=== PATIENT | female | born 2000 | race African-American/Black ===

== ENCOUNTER 2022-03-07 22:57 | Emergency (ER) | payer OTHER ==
[2022-03-08 16:44] LABS: Chlam.trachomatis by PCR,Urine DETECTED (NotDetected)
== END 2022-03-08 00:06 | disposition left against medical advice (07) ==
LOC: CSHERS 22:57
DX: Z53.21 Procedure and treatment not carried out due to patient leaving prior to being seen by health care provider (principal)
CPT/HCPCS: 87491; 87591

== ENCOUNTER 2022-03-24 08:46 | Emergency (ER) | payer OTHER ==
[2022-03-24 09:25] LABS: Bilirubin Neg (Negative); Blood, Urine 150 (Negative); Clarity Slightly Cloudy (Clear); Glucose, Urine (Dipstick) Normal (Negative); Ketone, Urine Negative (Negative); Leukocyte 500 (Negative); Nitrite Negative (Negative); Protein, Urine (Dipstick) Negative (Neg-Trace); Specific Gravity, Urine 1.015 (1.002-1.036); Urobilinogen Normal mg/dL (Less than 2)
[2022-03-24 09:27] LABS: Pregnancy Test - Urine (BHCG) Negative (Negative); Pregu Control Background? CLEAR/WHITE (CLR/WHITE); Pregu Control Bar Appear? YES (CONTROL BAR); Specific Gravity 1.015 (1.002-1.036)
[2022-03-24 09:36] LABS: #Eosinphils 0.1 10x3/uL (0.0-0.5); #Monocytes 0.6 10x3/uL (0.0-1.1); %Basophils 0.3 % (0.0-2.0); %Eosinophils 0.8 % (0.0-6.0); %Lymphocytes 9.9 % (18.0-47.0); %Monocytes 4.3 % (0.0-10.0); %Neutrophils 84.4 % (40.0-75.0); Hemoglobin 11.7 g/dL (12.0-15.5); Mean Corpuscular HGB CONC 33.6 g/dL (32.0-36.0); Mean Corpuscular Hemoglobin 27.3 pg (27.0-33.0); Mean Corpuscular Volume 81.1 fl (81.6-98.3); Mean Platelet Volume 10.9 fl (7.4-10.4); Platelet Count 319 10x3/uL (150-450); RBC Distribution Width 15.2 % (11.5-14.5); Red Blood Cell (RBC) Count 4.29 10x6/uL (3.90-5.03); White Blood Cell (WBC) Count 14.2 10x3/uL (3.5-10.5)
[2022-03-24 09:37] LABS: ALT (SGPT) Less than 6 U/L (8-55); AST (SGOT) 15 U/L (5-34); Albumin 4.2 g/dL (3.5-5.0); Alkaline Phosphatase 47 U/L (40-110); Anion Gap 14 mmol/L (10-20); BUN (Urea Nitrogen) 12 mg/dL (7.0-18.7); Bilirubin, Total 0.7 mg/dL (0.2-1.2); Calc. Creatinine Clearance 0 mL/min (70-130); Calcium 9.9 mg/dL (7.8-10.44); Carbon Dioxide 25 mmol/L (22-29); Chloride 103 mmol/L (98-107); Estimated GFR 72; Globulin 4.3 g/dL (2.4-3.5); Glucose 99 mg/dL (70-105); Potassium 3.8 mmol/L (3.5-5.1); Protein, Total 8.5 g/dL (6.0-8.3); Sodium 138 mmol/L (136-145)
[2022-03-24 09:43] LABS: Bacteria/HPF 2+ HPF (None Seen); WBC/HPF 21-50 HPF (0-3)
[2022-03-24] MEDS ORDERED: Ondansetron ODT 4 MG TAB ONE (09:51)
[2022-03-24] MEDS ORDERED: Lidocaine 1% (PF) 30 ML VIAL ONE (09:51)
[2022-03-24] MEDS ORDERED: cefTRIAXone\\ROCEPHIN 250 MG VIAL ONE (09:52)
[2022-03-24] MEDS ORDERED: Ketorolac Tromethamine 30 MG/ML VIAL ONE (09:52)
== END 2022-03-24 10:05 | disposition home or self-care (01) ==
LOC: CSHERS 08:46
DX: N93.9 Abnormal uterine and vaginal bleeding, unspecified (principal); N73.9 Female pelvic inflammatory disease, unspecified
CPT/HCPCS: 80053; 81003; 81015; 81025; 85025; 96372; 99284; J0696; J1885; J2001; Q0162

== ENCOUNTER → 2024-02-09 | Emergency (ER) | payer OTHER, SELFPAY ==
[~2024-02-09] MED LIST: Acetaminophen 325 MG TAB ONE; Ondansetron ODT 4 MG TAB ONE
[2024-02-09 12:11] LABS: ALT (SGPT) Less than 7 U/L (8-55); AST (SGOT) 12 U/L (5-34); Albumin 3.9 g/dL (3.5-5.0); Alkaline Phosphatase 48 U/L (40-110); Anion Gap 12 mmol/L (10-20); BUN (Urea Nitrogen) 8 mg/dL (7.0-18.7); Bilirubin, Total 0.9 mg/dL (0.2-1.2); Calc. Creatinine Clearance 0 mL/min (70-130); Calcium 9.6 mg/dL (7.8-10.44); Carbon Dioxide 26 mmol/L (22-29); Chloride 106 mmol/L (98-107); Estimated GFR 73; Globulin 3.4 g/dL (2.4-3.5); Glucose 98 mg/dL (70-105); Potassium 3.4 mmol/L (3.5-5.1); Protein, Total 7.3 g/dL (6.0-8.3); Sodium 141 mmol/L (136-145)
[2024-02-09 12:13] LABS: #Basophils 0.03 10x3/uL (0.0-0.2); #Eosinphils 0.03 10x3/uL (0.0-0.5); #Monocytes 0.34 10x3/uL (0.0-1.1); #Neutrophils 3.47 10x3/uL (1.5-8.4); %Basophils 0.6 % (0.0-2.0); %Eosinophils 0.6 % (0.0-6.0); %Lymphocytes 28.1 % (18.0-47.0); %Monocytes 6.3 % (0.0-10.0); %Neutrophils 64.2 % (40.0-75.0); Hematocrit 34.4 % (34.9-44.5); Hemoglobin 11.4 g/dL (12.0-15.5); Mean Corpuscular HGB CONC 33.1 g/dL (32.0-36.0); Mean Corpuscular Hemoglobin 26.5 pg (27.0-33.0); Mean Platelet Volume 10.4 fl (7.4-10.4); Platelet Count 232 10x3/uL (150-450); RBC Distribution Width 15.1 % (11.5-14.5); White Blood Cell (WBC) Count 5.4 10x3/uL (3.5-10.5)
[2024-02-09 13:50] LABS: Bilirubin Neg (Negative); Blood, Urine 25 (Negative); Glucose, Urine (Dipstick) Normal (Negative); Ketone, Urine Negative (Negative); Leukocyte 100 (Negative); Nitrite Negative (Negative); Protein, Urine (Dipstick) 15 mg/dl (Neg-Trace); Specific Gravity, Urine 1.015 (1.005-1.030); Urobilinogen Normal mg/dL (Less than 2)
[2024-02-09 13:52] LABS: Pregnancy Test - Urine (BHCG) Negative (Negative); Pregu Control Background? CLEAR/WHITE (CLR/WHITE); Pregu Control Bar Appear? YES (CONTROL BAR); Specific Gravity 1.015 (1.002-1.036)
[2024-02-09 14:00] LABS: Clarity Hazy (Clear)
[2024-02-09 14:08] LABS: Bacteria/HPF 3+ HPF (None Seen); CAUTI Indications for Culture Acute Hematuria; Mucous/LPF 2+ LPF (<2+); RBC/HPF 0-3 HPF (0-3); Trichomonas/HPF Rare HPF (None Seen)
[2024-02-09 14:26] LABS: Urine Culture Reflex Yes Yes
[2024-02-10 18:58] LABS: Chlam.trachomatis by PCR,Urine Not Detected (NotDetected); GC N.gonorrhoeae PCR,UrineVOID Not Detected (NotDetected)
== END ==
LOC: CSHERS 11:04
DX: A59.01 Trichomonal vulvovaginitis (principal); N39.0 Urinary tract infection, site not specified; F17.290 Nicotine dependence, other tobacco product, uncomplicated
CPT/HCPCS: 36415; 76856; 80053; 81001; 81025; 85025; 86900; 86901; 87077; 87086; 87186; 87491; 87591; Q0162

== ENCOUNTER 2024-08-23 13:01 | Emergency (ER) | payer OTHER | END 2024-08-23 14:01 | disposition home or self-care (01) | LOC: CSHERS 13:01 | DX: Z00.00 Encounter for general adult medical examination without abnormal findings (principal); O36.8120 Decreased fetal movements, second trimester, not applicable or unspecified; F17.290 Nicotine dependence, other tobacco product, uncomplicated; Z3A.19 19 weeks gestation of pregnancy | CPT/HCPCS: 99283 ==

== ENCOUNTER 2024-09-18 21:18 | Day surgery (SDC) | payer OTHER ==
[2024-09-19 00:48] LABS: Bilirubin Neg (Negative); Blood, Urine Negative (Negative); Clarity Clear (Clear); Glucose, Urine (Dipstick) Normal (Negative); Ketone, Urine 15 mg/dL (Negative); Leukocyte Negative (Negative); Nitrite Negative (Negative); Protein, Urine (Dipstick) 15 mg/dl (Neg-Trace); Urobilinogen Normal mg/dL (Less than 2)
[2024-09-19 00:58] LABS: Bacteria/HPF 1+ HPF (None Seen); CAUTI Indications for Culture Pregnancy; RBC/HPF 0-3 HPF (0-3)
[2024-09-19 00:59] LABS: Urine Culture Reflex Yes Yes
== END 2024-09-18 23:10 | disposition home or self-care (01) ==
LOC: CSHERS 21:18 → CSHLD/OP 21:43
PROVIDERS: ATTEND Family Medicine
DX: O36.8120 Decreased fetal movements, second trimester, not applicable or unspecified (principal); O09.42 Supervision of pregnancy with grand multiparity, second trimester; Z3A.22 22 weeks gestation of pregnancy; Z79.899 Other long term (current) drug therapy
CPT/HCPCS: 81001; 87086; 93005

== ENCOUNTER 2024-09-28 19:23 | Day surgery (SDC) | payer OTHER ==
[2024-09-28] MEDS ORDERED: hydrALAZINE 20 MG/ML VIAL SLOW IVP PRN (19:40)
[2024-09-28 20:01] VITALS: BMI 21.4
[2024-09-28 21:10] LABS: Bilirubin Neg (Negative); Blood, Urine Negative (Negative); Clarity Clear (Clear); Glucose, Urine (Dipstick) Normal (Negative); Ketone, Urine Negative (Negative); Leukocyte 500 (Negative); Nitrite Negative (Negative); Protein, Urine (Dipstick) Negative (Neg-Trace); Urobilinogen Normal mg/dL (Less than 2)
[2024-09-28 21:36] LABS: CAUTI Indications for Culture Pregnancy; RBC/HPF 0-3 HPF (0-3)
[2024-09-28 21:37] LABS: Bacteria/HPF 1+ HPF (None Seen); Trichomonas/HPF 2+ HPF (None Seen)
[2024-09-28 21:38] LABS: Urine Culture Reflex Yes Yes
[2024-09-28] MEDS: Lactated Ringer's 1,000 ML IV SCH (22:30)
[2024-09-28] MEDS: cefTRIAXone\\ROCEPHIN 1 GM in Sodium Chloride 0.9% 100 ML IVPB SCH (22:35)
[2024-09-28] MEDS: metroNIDAZOLE 500 MG TAB PO SCH (22:35)
[2024-09-28] MEDS: Fluconazole 100 MG TAB PO SCH (23:19)
== END 2024-09-28 23:25 | disposition home or self-care (01) ==
LOC: CSHLD/OP 19:23
PROVIDERS: ATTEND Family Medicine
DX: O47.02 False labor before 37 completed weeks of gestation, second trimester (principal); O21.2 Late vomiting of pregnancy; O99.891 Other specified diseases and conditions complicating pregnancy; R19.7 Diarrhea, unspecified; O99.282 Endocrine, nutritional and metabolic diseases complicating pregnancy, second trimester; E86.0 Dehydration; O23.592 Infection of other part of genital tract in pregnancy, second trimester; B96.89 Other specified bacterial agents as the cause of diseases classified elsewhere; B37.31 Acute candidiasis of vulva and vagina; O23.42 Unspecified infection of urinary tract in pregnancy, second trimester; Z79.899 Other long term (current) drug therapy; Z3A.23 23 weeks gestation of pregnancy
CPT/HCPCS: 76817; 81001; 87086; 87480; 87510; 87660; 96360; 99285; J0696

== ENCOUNTER 2024-10-20 12:19 | Emergency (ER) | payer OTHER ==
[2024-10-20] MEDS ORDERED: Ondansetron PF 4 MG/2 ML Vial ONE (12:55)
[2024-10-20] MEDS ORDERED: Acetaminophen 500 MG TAB ONE (13:06)
[2024-10-20 13:43] LABS: #Basophils 0.03 10x3/uL (0.0-0.2); #Eosinophils 0.07 10x3/uL (0.0-0.5); #Monocytes 0.54 10x3/uL (0.0-1.1); #Neutrophils 5.82 10x3/uL (1.5-8.4); %Basophils 0.4 % (0.0-2.0); %Eosinophils 0.8 % (0.0-6.0); %Lymphocytes 21.8 % (18.0-47.0); %Monocytes 6.5 % (0.0-10.0); Hematocrit 27.7 % (34.9-44.5); Mean Corpuscular HGB CONC 32.5 g/dL (32.0-36.0); Mean Corpuscular Hemoglobin 26.1 pg (27.0-33.0); Mean Corpuscular Volume 80.3 fL (81.6-98.3); Mean Platelet Volume 10.9 fL (7.4-10.4); Platelet Count 228 10x3/uL (150-450); RBC Distribution Width 13.2 % (11.5-14.5); Red Blood Cell (RBC) Count 3.45 10x6/uL (3.90-5.03); White Blood Cell (WBC) Count 8.31 10x3/uL (3.5-10.5)
[2024-10-20 14:02] LABS: ALT (SGPT) 9 U/L (Less than 34); AST (SGOT) 15 U/L (11-34); Albumin 2.7 g/dL (3.1-4.5); Alkaline Phosphatase 91 U/L (40-110); Anion Gap 11 mmol/L (10-20); BUN (Urea Nitrogen) 7 mg/dL (7.0-18.7); Bilirubin, Total 0.3 mg/dL (0.3-1.2); Calc. Creatinine Clearance 0 mL/min (70-130); Calcium 8.3 mg/dL (7.8-10.44); Carbon Dioxide 20 mmol/L (22-29); Chloride 109 mmol/L (98-107); Estimated GFR 114; Globulin 3.9 g/dL (2.4-3.5); Glucose 85 mg/dL (70-105); Potassium 3.5 mmol/L (3.5-5.1); Protein, Total 6.6 g/dL (6.0-8.3); Sodium 136 mmol/L (136-145)
[2024-10-20 16:40] LABS: Actual Bicarbonate (HCO3v) 18.6 mEq/L (22-28); Analyzer IN Cardio CS ER; Base Excess -3.9 mEq/L (-2 - +2); Chloride (VBG) 106 mmol/L (98-106); Critical Notified Whom: Litty; Hematocrit-VBG 29 % (36.0-47.0); Hemoglobin (Hb) 9.8 g/dL (11.7-15.5); Potassium (VBG) 3.54 mmol/L (3.70-5.30); Puncture Site Other Site; RapidComm Collect By LAB; Sodium 135 mmol/L (133-146); pH (venous) 7.478 (7.32-7.43)
== END 2024-10-20 17:30 | disposition home or self-care (01) ==
LOC: CSHERS 12:19
DX: O99.891 Other specified diseases and conditions complicating pregnancy (principal); R51.9 Headache, unspecified; O21.9 Vomiting of pregnancy, unspecified; O99.332 Smoking (tobacco) complicating pregnancy, second trimester; F17.290 Nicotine dependence, other tobacco product, uncomplicated; Z3A.27 27 weeks gestation of pregnancy; Z77.098 Contact with and (suspected) exposure to other hazardous, chiefly nonmedicinal, chemicals
CPT/HCPCS: 36415; 80053; 82805; 85025; 96374; J2405

== ENCOUNTER 2024-10-28 00:43 | Inpatient (IN) | payer OTHER ==
[2024-10-28] MEDS: Lactated Ringer's 1,000 ML IV SCH (01:40)
[2024-10-28 01:59] VITALS: BMI 21.7
[2024-10-28 01:59] LABS: #Basophils Less than 0.03 10x3/uL (0.0-0.2); #Eosinophils 0.06 10x3/uL (0.0-0.5); #Monocytes 0.64 10x3/uL (0.0-1.1); %Basophils 0.2 % (0.0-2.0); %Eosinophils 0.7 % (0.0-6.0); %Lymphocytes 18.7 % (18.0-47.0); %Monocytes 7.3 % (0.0-10.0); %Neutrophils 72.8 % (40.0-75.0); Bilirubin Neg (Negative); Blood, Urine Negative (Negative); Clarity Clear (Clear); Glucose, Urine (Dipstick) Normal (Negative); Hematocrit 27.9 % (34.9-44.5); Hemoglobin 9.5 g/dL (12.0-15.5); Ketone, Urine Negative (Negative); Leukocyte Negative (Negative); Mean Corpuscular HGB CONC 34.1 g/dL (32.0-36.0); Mean Corpuscular Hemoglobin 26.9 pg (27.0-33.0); Mean Platelet Volume 10.8 fL (7.4-10.4); Nitrite Negative (Negative); Platelet Count 261 10x3/uL (150-450); Protein, Urine (Dipstick) Negative (Neg-Trace); RBC Distribution Width 13.5 % (11.5-14.5); Red Blood Cell (RBC) Count 3.53 10x6/uL (3.90-5.03); Specific Gravity, Urine 1.005 (1.005-1.030); Urobilinogen Normal mg/dL (Less than 2); White Blood Cell (WBC) Count 8.79 10x3/uL (3.5-10.5)
[2024-10-28 02:15] LABS: Bacteria/HPF None Seen HPF (None Seen); CAUTI Indications for Culture Pregnancy; RBC/HPF None Seen HPF (0-3); Squamous Epithelial None Seen HPF (0-3); WBC/HPF 0-3 HPF (0-3)
[2024-10-28 02:16] LABS: Urine Culture Reflex Yes Yes
[2024-10-28 02:25] LABS: ALT (SGPT) 7 U/L (Less than 34); AST (SGOT) 14 U/L (11-34); Albumin 2.8 g/dL (3.1-4.5); Alkaline Phosphatase 130 U/L (40-110); Anion Gap 15 mmol/L (10-20); BUN (Urea Nitrogen) 5 mg/dL (7.0-18.7); Bilirubin, Total 0.4 mg/dL (0.3-1.2); Calc. Creatinine Clearance 109 mL/min (70-130); Calcium 8.9 mg/dL (7.8-10.44); Carbon Dioxide 19 mmol/L (22-29); Chloride 109 mmol/L (98-107); Estimated GFR 125; Globulin 3.9 g/dL (2.4-3.5); Glucose 82 mg/dL (70-105); Protein, Total 6.7 g/dL (6.0-8.3); Sodium 139 mmol/L (136-145)
[2024-10-28] MEDS: Acetaminophen 325 MG TAB PO PRN (02:48)
[2024-10-28] MEDS ORDERED: Morphine 4 MG/ML VIAL SLOW IVP SCH (03:30)
[2024-10-28] MEDS: Promethazine HCl 12.5 MG, Admixture Fee 1 EACH in Sodium Chloride 0.9% 50 ML IVPB PRN (04:05)
[2024-10-28] MEDS: Meperidine HCl/PF 25 MG (1 mL) VIAL SLOW IVP SCH (04:11)
[2024-10-28] MEDS ORDERED: Promethazine HCl 25 MG/ML VIAL IM PRN (04:54)
[2024-10-28] MEDS ORDERED: hydrALAZINE 20 MG/ML VIAL SLOW IVP PRN (04:54)
[2024-10-28] MEDS ORDERED: Methylergonovine 0.2 MG/ML VIAL IM PRN (04:58)
[2024-10-28] MEDS ORDERED: Tranexamic Acid 1,000 MG/10 ML VIAL IVP PRN (04:58)
[2024-10-28] MEDS ORDERED: Misoprostol 200 MCG TAB PR PRN (04:58)
[2024-10-28] MEDS ORDERED: Oxytocin 30 units/NS 500 ML 500 ML IV SCH (05:00)
[2024-10-28] MEDS: Betamet Acet/Betamet Na Ph 30 MG/5 ML VIAL IM SCH (05:02)
[2024-10-28] MEDS: Magnesium Sulfate 20 gm/500 ml 20 GM/500 ML BAG ONE (05:16)
[2024-10-28 07:17] LABS: Syphilis Antibody Nonreactive (Nonreactive); Syphilis Antibody Index 0.08 S/CO (<1.00 Non-Reactive)
[2024-10-28 07:19] LABS: HBsAg Index 0.19 S/CO (0-0.99); Hep B Surf Ag - L&D Non-Reactive S/CO (NonReactive)
[2024-10-28] MEDS: Indomethacin 25 mg Capsule PO SCH ×2 (08:20→14:08)
[2024-10-28] MEDS: Ampicillin 2 GM in Sodium Chloride 0.9% 100 ML IVPB SCH (08:37)
[2024-10-28] MEDS: Azithromycin 500 MG in Sodium Chloride 0.9% 250 ML 250 ML IVPB SCH (08:44)
[2024-10-28] MEDS: Magnesium Sulfate 20 gm/500 ml 20 GM/500 ML BAG IVPB SCH (13:56)
[2024-10-28] MEDS: Ondansetron PF 4 MG/2 ML Vial IVP PRN (18:56)
[2024-10-28] MEDS: Milk Of Magnesia 30 ML UDCUP PO SCH (21:13)
[2024-10-29] MEDS: Betamet Acet/Betamet Na Ph 30 MG/5 ML VIAL ONE (06:28)
[2024-10-29] MEDS: Progesterone,Micronized 100 MG CAP FS SCH ×2 (10:49→20:49)
[2024-10-29] MEDS: Ferrous Sulfate 325 MG TAB PO SCH (18:54)
[2024-10-30] MEDS ORDERED: Witch Hazel 100 PAD JAR TOP PRN (00:18)
[2024-10-30] MEDS: Diphenoxylate HCl/Atropine Tablet PO PRN (09:00)
[2024-10-30] MEDS: Diphenoxylate HCl/Atropine Tablet PO SCH ×2 (14:00→20:43)
[2024-10-30] MEDS: Promethazine HCl 25 MG, Admixture Fee 1 EACH in Sodium Chloride 0.9% 50 ML IVPB SCH (14:39)
[2024-10-31] MEDS: Ondansetron ODT 4 MG TAB SL SCH (14:32)
[2024-10-31] MEDS: Metoclopramide HCl 10 MG TAB PO SCH (14:32)
[2024-10-31] MEDS: Doxylamine 25 MG TAB PO SCH (14:32)
[2024-11-01 21:09] LABS: Influenza A by NAA Not Detected (NotDetected); Influenza B by NAA Not Detected (NotDetected); RSV by NAA Not Detected (NotDetected); SARS-CoV-2 NAA Rapid Test Not Detected (NotDetected)
[2024-11-02 12:51] LABS: Analyzer IN Cardio CS NICU; RapidComm Collect By NICU
[2024-11-02 12:53] LABS: Analyzer IN Cardio CS NICU; RapidComm Collect By NICU
[2024-11-02] MEDS ORDERED: SUCCINYLCHOLINE/SOD CL,ISO/PF 200 MG/10 ML SYRINGE FS ONE (13:00)
[2024-11-02] MEDS ORDERED: Oxytocin 10 UNITS/ML VIAL ONE (13:00)
[2024-11-02] MEDS ORDERED: PROPOFOL 200 MG/20 ML VIAL ONE (13:00)
[2024-11-02] MEDS: Ketorolac Tromethamine 30 MG (1 mL) VIAL ONE (13:05)
[2024-11-02] MEDS ORDERED: Ondansetron PF 4 MG/2 ML Vial IVP PRN ×2 (13:17→22:02)
[2024-11-02] MEDS ORDERED: diphenhydrAMINE 50 MG/ML VIAL IM PRN (13:17)
[2024-11-02] MEDS ORDERED: Naloxone HCl 0.4 mg/ml Vial IV PRN (13:17)
[2024-11-02] MEDS ORDERED: FENTANYL 500 MCG/10 ML VIAL 2,000 MCG in Sodium Chloride 0.9% 60 ML IV PRN (13:17)
[2024-11-02] MEDS ORDERED: Promethazine HCl 25 MG/ML VIAL IM PRN ×2 (13:17→22:02)
[2024-11-02] MEDS ORDERED: diphenhydrAMINE 25 MG CAP PO PRN ×2 (13:17→22:02)
[2024-11-02] MEDS ORDERED: diphenhydrAMINE 50 MG/ML VIAL IVP PRN (13:17)
[2024-11-02] MEDS ORDERED: Communication Order-Pharmacy FS PRN (13:30)
[2024-11-02] MEDS: fentaNYL 50 mcg/mL 1 mL Vial ONE (13:35)
[2024-11-02] MEDS: FENTANYL 1,000 MCG/20 ML VIAL 1,000 MCG in Sodium Chloride 0.9% 30 ML IV PRN (13:48)
[2024-11-02] MEDS: CEFAZOLIN 2 GM VIAL ONE (20:14)
[2024-11-02] MEDS: Azithromycin 500 MG VIAL ONE (20:14)
[2024-11-02] MEDS: fentaNYL 50 mcg/mL 1 mL Vial SLOW IVP SCH (21:35)
[2024-11-02] MEDS ORDERED: HYDROcodone/Acetaminophen 5/325 mg Tablet PO PRN ×2 (22:02)
[2024-11-02] MEDS ORDERED: Lanolin Ointment 7 GM TUBE TOP PRN (22:02)
[2024-11-02] MEDS ORDERED: hydrALAZINE 20 MG/ML VIAL SLOW IVP PRN (22:02)
[2024-11-02] MEDS ORDERED: Bisacodyl 10 MG SUPP PR PRN (22:02)
[2024-11-02] MEDS ORDERED: Boostrix 0.5 ML (Tdap) VIAL (>/=7 yrs of age) IM ONE (22:02)
[2024-11-02] MEDS: Ketorolac Tromethamine 30 MG (1 mL) VIAL IVP SCH (22:32)
[2024-11-02] MEDS: Fentanyl 100 MCG/2 ML VIAL ONE (23:15)
[2024-11-03 05:07] LABS: Hematocrit 25.3 % (34.9-44.5); Hemoglobin 8.5 g/dL (12.0-15.5); Mean Corpuscular HGB CONC 33.6 g/dL (32.0-36.0); Mean Corpuscular Hemoglobin 27.1 pg (27.0-33.0); Mean Corpuscular Volume 80.6 fL (81.6-98.3); Mean Platelet Volume 10.8 fL (7.4-10.4); Platelet Count 222 10x3/uL (150-450); RBC Distribution Width 13.8 % (11.5-14.5); Red Blood Cell (RBC) Count 3.14 10x6/uL (3.90-5.03)
[2024-11-03] MEDS: Simethicone Chewable 80 MG TAB PO PRN (08:43)
[2024-11-03] MEDS: Prenatal Vitamin 1 TAB PO SCH (08:43)
[2024-11-03] MEDS: Docusate 100 MG CAP PO SCH (08:43)
[2024-11-03] MEDS: Ferrous Sulfate 325 MG TAB PO SCH (08:43)
[2024-11-03] MEDS ORDERED: traMADol HCl 50 MG TAB PO PRN (11:10)
[2024-11-03] MEDS ORDERED: Meperidine HCl/PF 25 MG (1 mL) VIAL IM PRN (11:14)
[2024-11-03] MEDS: traMADol HCl 50 MG TAB PO PRN (11:57)
[2024-11-03] MEDS: Ibuprofen 800 MG TAB PO SCH (21:02)
[2024-11-05] MEDS: HYDROcodone/Acetaminophen 5/325 mg Tablet PO PRN (09:38)
[2024-11-05] MEDS: Labetalol HCl 100 MG TAB PO SCH (18:30)
[2024-11-06 16:50] VITALS: TEMP 98.3
[2024-11-06 16:51] VITALS: BP 128/60
== END 2024-11-06 18:15 | disposition home or self-care (01) | DRG 786 ==
LOC: CSHLD/OP 00:43 → INTOOBSV 04:54 → CSHLD 04:54 → OBSVTOIN 10-30 13:22 → CSHLD 11-02 13:17 → CSHPP 11-02 16:35
PROVIDERS: ADMIT Family Medicine; ATTEND Family Medicine
PROC: 10D00Z1 Extraction of Products of Conception, Low, Open Approach (ICD-10-PCS; principal; 2024-11-02)
DX: O76 Abnormality in fetal heart rate and rhythm complicating labor and delivery (principal); O45.93 Premature separation of placenta, unspecified, third trimester; Z3A.28 28 weeks gestation of pregnancy; Z37.0 Single live birth
CPT/HCPCS: 0241U; 36415; 51702; 72170; 76815; 76817; 76819; 80053; 81001; 82805; 85025; 85027; 86780; 86850; 86900; 86901; 87086; 87340; 88305; 99285; C1889; J0290; J0456; J0702; J1885; J2175; J2405; J2550; J2590; J2704; J3010; J3475; J7050; J7120; Q0162